=== PATIENT | female | born 1940 | race Caucasian/White ===

== ENCOUNTER → 2018-05-10 | Outpatient (CLI) | payer MEDICARE ==
--- NOTE | 2018-05-10 10:08 | PCVCIMAG ---
EXAM: VENOUS DUPLEX RIGHT LOWER EXTREMITY INDICATION: Leg pain and swelling. FINDINGS: Right leg: Mild/moderate nonocclusive thrombus in the common femoral vein and upper main femoral vein. Nonocclusive thrombus is also noted in the right external iliac vein where visualized. No thrombus in the mid/lower main femoral, or popliteal veins. Calf veins are unremarkable where seen. Venous insufficiency is noted in the lower main femoral vein and popliteal vein. IMPRESSION: Mild/moderate nonocclusive thrombus in the right common femoral vein, upper right main femoral vein, and right external iliac vein. Venous insufficiency in the right main femoral vein and popliteal vein as described. LOC:[id number]
== END | disposition home or self-care (01) ==
LOC: PCVCIMAG 09:39
PROVIDERS: ATTEND Nuclear Medicine Nuclear Cardiology
DX: I82.5Y1 Chronic embolism and thrombosis of unspecified deep veins of right proximal lower extremity (principal); M79.89 Other specified soft tissue disorders; I87.2 Venous insufficiency (chronic) (peripheral); I10 Essential (primary) hypertension; I48.91 Unspecified atrial fibrillation; E78.5 Hyperlipidemia, unspecified; K21.9 Gastro-esophageal reflux disease without esophagitis; Z87.891 Personal history of nicotine dependence
CPT/HCPCS: 93971; G0463

== ENCOUNTER → 2018-05-13 | Outpatient (CLI) | payer MEDICARE ==
[~2018-05-13] MED LIST: DIAZEPAM 10 MG TABLET. ONE; HEPARIN for SUB-Q USE 5,000 UNIT/ML VIAL. SQ ONE; IOHEXOL 300 MG/ML 100ML VIAL. ONE; IV NORMAL SALINE 500ML BAG 500 ML ONE; LIDOCAINE 1% Multi-Dose 50 ML VIAL. ONE; MIDAZOLAM HCL/PF 2 MG/2 ML VIAL. ONE; fentaNYL PF VIAL 100 MCG/2 ML VIAL ONE
--- NOTE | 2018-05-13 16:41 | PCVCINTER ---
EXAM: 1. INTRAVASCULAR ULTRASOUND OF THE INFERIOR VENA CAVA 2. INTRAVASCULAR ULTRASOUND OF THE RIGHT COMMON AND EXTERNAL ILIAC AND COMMON FEMORAL VEINS 3. INTRAVASCULAR ULTRASOUND OF THE LEFT COMMON AND EXTERNAL ILIAC 4. INFERIOR VENA CAVA AND BILATERAL ILIOFEMORAL VENOGRAPHY 5. RIGHT COMMON ILIAC VEIN STENT PLACEMENT. 6. LEFT COMMON ILIAC VEIN STENT PLACEMENT. 7. RIGHT EXTERNAL ILIAC VEIN STENT PLACEMENT. INDICATION: Iliofemoral venous obstruction. Previous episodes of DVT unexplained in the right leg. Persistent right leg swelling. Chronic Venous Insufficiency Class 4a. Leg pain and swelling. Failed conservative therapy including medical grade compression stockings for at least 3 months. Venous hypertension chronic. PROCEDURE: Procedure and risks of IVC and ileofemoral venography and intravascular ultrasound, and venous stent placement as appropriate including bleeding, infection, venous thrombosis, stent migration/thrombosis, contrast-induced nephropathy requiring dialysis, stroke, and were discussed with the patient and consent obtained. Patient was given IV antibiotics. The patient's right neck and chest was prepped and draped in the normal sterile fashion. IV conscious sedation was used throughout the procedure with appropriate monitoring. Ultrasound was used to interrogate the neck and showed the internal jugular vein to be patent. A spot ultrasound image of the internal jugular vein was saved. Under ultrasound guidance access into the right internal jugular vein was obtained and an 8F sheath was placed to the level of the lower IVC. Catheter was placed into the lower IVC and IVC cavogram performed. Catheter was placed to the level of the right common femoral vein and right iliofemoral venogram obtained. Catheter was placed to the level of the left common femoral vein and left iliofemoral venogram was obtained. The 8 Portuguese intravascular ultrasound catheter was then placed to the level of the right common femoral vein and intravascular ultrasound evaluation of the right common femoral, right external iliac, and right common iliac veins was accomplished in a pull-back fashion. The 8 Portuguese intravascular ultrasound catheter was then placed to the level of the left external iliac vein and intravascular ultrasound evaluation of the left external iliac, and left common iliac veins was accomplished in a pull-back fashion. Intravascular ultrasound evaluation of the inferior vena cava was then accomplished in a pullback fashion. Stent placement across the areas of high-grade stenosis in the right external iliac vein was carried out with a 12 x 80 Smart control stent with subsequent dilatation to 10.0 mm. Stent placement across the areas of high-grade stenosis in the right common iliac vein was carried out with a 14 x 40 Smart control stent with subsequent dilatation to 10.0 mm. Stent placement across the areas of high-grade stenosis in the right common femoral vein was carried out with a 12 x 60 Smart control stent with subsequent dilatation to 9.5 mm. Stent placement across the areas of high-grade stenosis in the left common iliac vein was carried out with a 14 x 40 and 14 x 30 Smart control stents with subsequent dilatation to 10.0 mm. Sheath was removed and hemostasis obtained using manual pressure. FINDINGS: IVC INTRAVASCULAR ULTRASOUND: Normal vessel: 5.8 x 14.9 mm. Area = 74.0 sq. mm. RIGHT COMMON ILIAC VEIN INTRAVASCULAR ULTRASOUND: Normal vessel: Complete occlusion. Minimum vessel diameter: 3.4 x 4.6 mm. Area = 10.9 sq. mm. Post-Intervention diameter: 7.5 x 10.5 mm. Area = 61.9 sq. mm. RIGHT EXTERNAL ILIAC VEIN INTRAVASCULAR ULTRASOUND: Normal vessel: Complete occlusion. Minimum vessel diameter: 3.3 x 6.1 mm. Area = 14.0 sq. mm. Post-Intervention diameter: 8.3 x 9.2 mm. Area = 60.8 sq. mm. RIGHT COMMON FEMORAL VEIN INTRAVASCULAR ULTRASOUND: Normal vessel: Mid and upper vessel occlusion. Minimum vessel diameter: 3.3 x 6.0 mm. Area = 13.9 sq. mm. Post-Intervention diameter: 7.3 x 9.9 mm. Area = 56.2 sq. mm. LEFT COMMON ILIAC VEIN INTRAVASCULAR ULTRASOUND: Normal vessel: Subtotal occlusion. Minimum vessel diameter: 2.7 x 6.5 mm. Area = 12.5 sq. mm. Post-Intervention diameter: 8.6 x 11.7 mm. Area = 84.8 sq. mm. LEFT EXTERNAL ILIAC VEIN INTRAVASCULAR ULTRASOUND: Normal vessel: Presumed occlusion. VENOGRAPHY: INFERIOR VENA CAVA: Upper IVC showing good patency. [id number] irregularity infrarenal IVC likely related to prior episodes of thrombus which have largely resolved with adequate flow. No acute thrombus noted. RIGHT COMMON ILIAC VEIN: Complete occlusion throughout. RIGHT EXTERNAL ILIAC VEIN: Complete occlusion throughout. RIGHT COMMON FEMORAL VEIN: Occlusion of the mid and upper vessel. LEFT COMMON ILIAC VEIN: Subtotal occlusion/scarring throughout this vessel. LEFT EXTERNAL ILIAC VEIN: Unable to visualize the mid and lower vessel likely due to chronic occlusion. LEFT COMMON FEMORAL VEIN: Not visualized likely because of the external iliac vein presumed occlusion. IMPRESSION: Previous IVC filter remains patent. The infrarenal IVC shows chronic scarring. 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 Residual scarring and chronic thrombus noted in the lower right common femoral vein. Chronic scarring throughout the left common iliac vein causing near subtotal occlusion was treated with stent placements with good patency restored. 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 LOC:[id number]
== END | disposition home or self-care (01) ==
LOC: PCVCINTER 10:08
PROVIDERS: ATTEND Nuclear Medicine Nuclear Cardiology
DX: I87.2 Venous insufficiency (chronic) (peripheral) (principal); I87.301 Chronic venous hypertension (idiopathic) without complications of right lower extremity; I87.1 Compression of vein; I10 Essential (primary) hypertension; E78.5 Hyperlipidemia, unspecified; K21.9 Gastro-esophageal reflux disease without esophagitis; D64.9 Anemia, unspecified; I48.0 Paroxysmal atrial fibrillation; Z87.891 Personal history of nicotine dependence; I47.1 Supraventricular tachycardia; Z88.0 Allergy status to penicillin; Z79.899 Other long term (current) drug therapy; Z86.718 Personal history of other venous thrombosis and embolism; I69.351 Hemiplegia and hemiparesis following cerebral infarction affecting right dominant side
CPT/HCPCS: 36012; 37238; 37239; 37252; 37253; 75822; 75825; 76937; 99152; 99153; C1725; C1751; C1753; C1757; C1769; C1876; C1887; C1894; J0690; J1644; J2250; J3010; J7040; Q9967

== ENCOUNTER → 2018-08-20 | Outpatient (CLI) | payer MEDICARE ==
--- NOTE | 2018-08-20 12:06 | PCVCIMAG ---
EXAM: VENOUS DUPLEX IVC AND ILIAC VEINS INDICATION: Leg pain and swelling. FINDINGS: Inferior vena cava: IVC is patent where visualized. Right iliac veins: Previous stent right common and external iliac vein maintaining adequate patency. Left iliac veins: Previous common iliac vein stent maintaining satisfactory patency. Left external iliac vein appears patent although is more difficult to visualize. IMPRESSION: Inferior vena cava and bilateral iliac veins appear patent. Note is made the left external iliac vein not optimally seen. LOC:[id number]
--- NOTE | 2018-08-20 12:07 | PCVCIMAG ---
EXAM: VENOUS DUPLEX BOTH LOWER EXTREMITIES INDICATION: Leg pain and swelling. FINDINGS: Right leg: Small amount of chronic appearing nonocclusive thrombus in the common femoral vein. Main femoral and popliteal veins are patent without thrombus. Calf veins are unremarkable where seen. Left leg: No thrombus in the common femoral, main femoral, or popliteal veins. These veins are compressible with phasic flow. Calf veins are unremarkable where seen. IMPRESSION: Small amount of chronic appearing nonocclusive thrombus right common femoral vein has decreased in amount since May 2018 study. No evidence of deep venous thrombosis in the left lower extremity as detailed above. LOC:[id number]
== END | disposition home or self-care (01) ==
LOC: PCVCIMAG 08:20
PROVIDERS: ATTEND Nuclear Medicine Nuclear Cardiology
DX: I87.2 Venous insufficiency (chronic) (peripheral) (principal); I82.5Y1 Chronic embolism and thrombosis of unspecified deep veins of right proximal lower extremity; I82.423 Acute embolism and thrombosis of iliac vein, bilateral; I87.1 Compression of vein; M79.89 Other specified soft tissue disorders; I10 Essential (primary) hypertension; I48.91 Unspecified atrial fibrillation; E78.5 Hyperlipidemia, unspecified; K21.9 Gastro-esophageal reflux disease without esophagitis
CPT/HCPCS: 36415; 93970; 93976; G0463

== ENCOUNTER 2018-12-10 16:00 | Emergency (ER) | payer MEDICARE ==
[~2018-12-10] VITALS: Ht 162.6 cm; Wt 96.2 kg
--- NOTE | 2018-12-10 16:34 | PHYS DOC ---
Adult General HPI HPI Patient is a 78 year old female who fell one week ago. The patient lives an assisted living facility due to a past history of a stroke. The patient fell a week ago and is having right leg pain. The patient has bruising to the right leg and erythema. States that she has 0 out of 10 pain when laying on the bed howevelin r jumps to 5 out of 10 with stress move the leg. Has not taken any medicine prior to arrival for the pain. Has a history of blood clots however it is unclear whether or not she is currently on Xarelto. Review of Systems Review of Systems Constitutional: Denies fever or chills [] Eyes: Denies change in visual acuity, redness, or eye pain [] HENT: Denies nasal congestion or sore throat [] Respiratory: Denies cough or shortness of breath [] Cardiovascular: No additional information not addressed in HPI [] GI: Denies abdominal pain, nausea, vomiting, bloody stools or diarrhea [] : Denies dysuria or hematuria [] Musculoskeletal: Denies back pain but reports R leg pain. Integument: Denies rash or skin lesions [] Neurologic: Denies headache, focal weakness or sensory changes [] Endocrine: Denies polyuria or polydipsia [] Complete systems were reviewed and found to be within normal limits, except as documented in this note. Physical Exam Physical Exam Constitutional: Well developed, well nourished, no acute distress, non-toxic appearance. [] HENT: Normocephalic, atraumatic, bilateral external ears normal, oropharynx moist, no oral exudates, nose normal. [] Eyes: PERRLA, EOMI, conjunctiva normal, no discharge. [] Neck: Normal range of motion, no tenderness, supple, no stridor. [] Cardiovascular:Heart rate regular rhythm, no murmur [] Lungs & Thorax: Bilateral breath sounds clear to auscultation [] Abdomen: Bowel sounds normal, soft, no tenderness, no masses, no pulsatile masses. [] Skin: Warm, dry, no erythema, no rash. [] Back: No tenderness, no CVA tenderness. [] Extremities: Tenderness to R leg, has bruising and erythema. Neurologic: Alert and oriented X 3, normal motor function, normal sensory function, no focal deficits noted. [] Psychologic: Affect normal, judgement normal, mood normal. [] EKG EKG [] Radiology/Procedures Radiology/Procedures []PATIENT: UZAIR CLAROSOUNT: [id number]#: [id number] : 1940 LOCATION: ER AGE: 78 SEX: F EXAM STATUS: PRE ER ORD. PHYSICIAN: IVAN CONDON APRN REASON: fall, pain PROCEDURE: VENOUS LOWER EXTREMITY RIGHT Right lower extremity venous doppler ultrasound History: Right leg pain, fall Comparison: None Findings: Multiple grayscale, color, and duplex spectral analysis sonographic images were acquired of the right lower extremity veins to evaluate for the presence of DVT. There is normal phasicity. Normal compression, color-flow, and augmentation is demonstrated from the right common femoral to the popliteal veins. There is normal color flow of the proximal greater saphenous and profunda femoris veins. There is normal color flow of segments of the calf veins. There is hypoechoic fluid collection of the anterior right calf region reportedly at area of visible swelling about 4.3 x 2.2 x 2 cm in size. Impression: 1. There is no evidence of deep venous thrombosis from the right common femoral to the popliteal veins. 2. There is a nonspecific fluid collection of the anterior right calf region of uncertain sterility, consideration of sequela of hematoma. Electronically signed by: Gucci Shay MD (12/10/2018 5:27 PM) [id number] PATIENT: RICHIE CLAROS ACCOUNT: [id number] : 1940 LOCATION: ER AGE: 78 SEX: F EXAM STATUS: PRE ER ORD. PHYSICIAN: IVAN CONDON APRN REASON: pain, fall PROCEDURE: TIBIA FIBULA RIGHT TIBIA FIBULA RIGHT 12/10/2018 4:32 PM INDICATION: Pain, fall COMPARISON: None available. TECHNIQUE: 2 views of the tibia and fibula are provided. FINDINGS: Total knee arthroplasty is identified. There is no lucency surrounding the hardware. Diffuse subcutaneous edema. AP view of the ankle is not well profiled. There is no acute fracture or dislocation. Bone mineralization is within normal limits. Joint spaces are maintained. Regional soft tissues are within normal limits. There is no soft tissue gas or osseous erosion. IMPRESSION: No acute fracture or dislocation. AP view the ankle is not well profiled. If there is clinical concern for ankle injury, dedicated ankle films may be of benefit. Electronically signed by: Chayito Mccauley MD (12/10/2018 4:51 PM) [id number] DICTATED and SIGNED BY: CHAYITO MCCAULEY MD DATE: 12/10/18 1651 Course & Med Decision Making Course & Med Decision Making Pertinent Labs and Imaging studies reviewed. (See chart for details) Will get x-ray and ultrasound of the extremity. Was on Xarelto back in August unclear whether she is currently on this medication. Patient is not sure what medications that she takes. Xray and ultrasound are negative. There appears to be a mild cellulitis of the leg. Will place on Keflex. Dragon Disclaimer Dragon Disclaimer This electronic medical record was generated, in whole or in part, using a voice recognition dictation system. Departure Departure Impression: Primary Impression: Cellulitis Additional Impression: Fall Disposition: HOME, SELF-CARE Condition: STABLE Referrals: YARED FERREIRA MD (PCP) Patient Instructions: Fall Prevention and Home Safety Additional Instructions: Thank you for visiting [facility]. We appreciate you trusting us with your care. If any additional problems come up don't hesitate to return to visit us. Please follow up with your primary care provider so they can plan additional care if needed and know about the problem that you had. If symptoms worsen come back to the Emergency Department. Any concerning symptoms that start such as chest pain, shortness of air, weakness or numbness on one side of the body, running high fevers or any other concerning symptoms return to the ER. Please fill your medications at any pharmacy and follow the prescription instructions. You have been prescribed an antibiotic today to help fight your infection. Please take all of the antibiotic as directed. If after 48 hours the infection is not improving, please return for more care. If the infection worsens, return to ER for additional care. Scripts Cephalexin (KEFLEX) 500 Mg Capsule 500 MG PO QID for 7 Days, #28 CAP Prov: IVAN CONDON WORD PROCESSOR OPERATOR 12/10/18 Problem Qualifiers Primary Impression: Cellulitis Site of cellulitis: extremity Site of cellulitis of extremity: lower extremity Laterality: right Qualified Codes: L03.115 - Cellulitis of right lower limb Additional Impression: Fall Encounter type: initial encounter Qualified Codes: W19.XXXA - Unspecified fall, initial encounter IVAN CONDON APRN Dec 10, 2018 16:34
--- NOTE | 2018-12-10 16:54 | RAD ---
TIBIA FIBULA RIGHT 12/10/2018 4:32 PM INDICATION: Pain, fall COMPARISON: None available. TECHNIQUE: 2 views of the tibia and fibula are provided. FINDINGS: Total knee arthroplasty is identified. There is no lucency surrounding the hardware. Diffuse subcutaneous edema. AP view of the ankle is not well profiled. There is no acute fracture or dislocation. Bone mineralization is within normal limits. Joint spaces are maintained. Regional soft tissues are within normal limits. There is no soft tissue gas or osseous erosion. IMPRESSION: No acute fracture or dislocation. AP view the ankle is not well profiled. If there is clinical concern for ankle injury, dedicated ankle films may be of benefit. Electronically signed by: Jennie Hope MD (12/10/2018 4:51 PM) [id number]
--- NOTE | 2018-12-10 17:30 | RAD ---
Right lower extremity venous doppler ultrasound History: Right leg pain, fall Comparison: None Findings: Multiple grayscale, color, and duplex spectral analysis sonographic images were acquired of the right lower extremity veins to evaluate for the presence of DVT. There is normal phasicity. Normal compression, color-flow, and augmentation is demonstrated from the right common femoral to the popliteal veins. There is normal color flow of the proximal greater saphenous and profunda femoris veins. There is normal color flow of segments of the calf veins. There is hypoechoic fluid collection of the anterior right calf region reportedly at area of visible swelling about 4.3 x 2.2 x 2 cm in size. Impression: 1. There is no evidence of deep venous thrombosis from the right common femoral to the popliteal veins. 2. There is a nonspecific fluid collection of the anterior right calf region of uncertain sterility, consideration of sequela of hematoma. Electronically signed by: Gucci Shay MD (12/10/2018 5:27 PM) [facility]
[2018-12-10] MEDS ORDERED: CEPH-264 PO (17:48)
[2018-12-10 18:15] VITALS: BP 145/89
== END 2018-12-10 18:30 | disposition home or self-care (01) ==
LOC: ER 16:00
DX: S80.11XA Contusion of right lower leg, initial encounter (principal); L03.115 Cellulitis of right lower limb; Z86.73 Personal history of transient ischemic attack (TIA), and cerebral infarction without residual deficits; W18.39XA Other fall on same level, initial encounter; Y93.89 Activity, other specified; Y92.098 Other place in other non-institutional residence as the place of occurrence of the external cause; Y99.8 Other external cause status
CPT/HCPCS: 73590; 93971; 99284-25

== ENCOUNTER → 2018-12-16 | Outpatient (CLI) | payer MEDICARE ==
[2018-12-10 18:15] VITALS: BP 145/89
[~2018-12-16] MED LIST changes: +CEPH-264 PO; -DIAZEPAM 10 MG TABLET. ONE; -HEPARIN for SUB-Q USE 5,000 UNIT/ML VIAL. SQ ONE; -IOHEXOL 300 MG/ML 100ML VIAL. ONE; -IV NORMAL SALINE 500ML BAG 500 ML ONE; -LIDOCAINE 1% Multi-Dose 50 ML VIAL. ONE; -MIDAZOLAM HCL/PF 2 MG/2 ML VIAL. ONE; -fentaNYL PF VIAL 100 MCG/2 ML VIAL ONE
--- NOTE | 2018-12-16 11:04 | PCVCIMAG ---
EXAM: VENOUS DUPLEX RIGHT LEG INDICATION: Leg pain and swelling. FINDINGS: Right leg: Small amount of chronic appearing nonocclusive thrombus or scarring in the right common femoral vein. No thrombus in the main femoral, or popliteal veins. Calf veins are unremarkable where seen. IMPRESSION: Small amount of chronic appearing nonocclusive thrombus or scarring in the right common femoral vein similar in appearance to August 2018 study. No thrombus in the main femoral or popliteal veins or calf veins. LOC:[id number]
== END | disposition home or self-care (01) ==
LOC: PCVCIMAG 07:28
PROVIDERS: ATTEND Nuclear Medicine Nuclear Cardiology
DX: I82.501 Chronic embolism and thrombosis of unspecified deep veins of right lower extremity (principal); I87.2 Venous insufficiency (chronic) (peripheral)
CPT/HCPCS: 93971

== ENCOUNTER 2021-09-06 16:20 | Inpatient (IN) | payer MEDICARE ==
[~2021-09-06] VITALS: Ht 157.5 cm; Wt 100.0 kg
--- NOTE | 2021-09-06 16:39 | PHYS DOC ---
Past Medical History Past Surgical History: Knee Replacement Smoking Status: Never Smoker Alcohol Use: None Drug Use: None Adult General HPI HPI Patient is a 80 year old female presenting to the emergency department for a fall that occurred shortly prior to arrival. Patient said that she was transitioning to her bedside commode when she stumbled and fell on her bottom and she bumped her head as well. She said she did not lose consciousness and she says she has no pain at this time. Per EMS she was complaining of arm and knee pain but she denied that to me. She said she did not hurt initially but now she does not hurt at all. She has no open wounds or abrasions or obvious signs of trauma. She is on Xarelto. She appears to be dyspneic and she has lower extremity edema looking at her assisted living facility paperwork appears this is baseline for her. I asked about her shortness of breath and she says she is not more short of breath than usual. Review of Systems Review of Systems Constitutional: Denies fever or chills [] Eyes: Denies change in visual acuity, redness, or eye pain [] HENT: Denies nasal congestion or sore throat [] Respiratory: Denies cough or shortness of breath [] Cardiovascular: No additional information not addressed in HPI [] GI: Denies abdominal pain, nausea, vomiting, bloody stools or diarrhea [] : Denies dysuria or hematuria [] Musculoskeletal: Denies back pain or joint pain [] Integument: Denies rash or skin lesions [] Neurologic: Denies headache, focal weakness or sensory changes [] All other systems were reviewed and found to be within normal limits, except as documented in this note. Current Medications Current Medications Current Medications Medications (Trade) Dose Ordered Sig/Marianna Start Time Stop Time Status Last Admin Dose Admin Prothrombin Complex Concent (Human) 2000 unit/ Miscellaneous 80 ml @ 0 mls/hr 1X ONCE 09/06/21 18:30 09/06/21 18:31 Allergies Allergies Allergies Coded Allergies Type Severity Reaction Last Updated Verified Penicillins Allergy Intermediate 12/10/18 Yes Physical Exam Physical Exam Constitutional: Chronically ill-appearing female in no acute distress HENT: Normocephalic, atraumatic, bilateral external ears normal, oropharynx moist, no oral exudates, nose normal. [] Eyes: PERRLA, EOMI, conjunctiva normal, no discharge. [] Neck: Normal range of motion, no tenderness, supple, no stridor. [] Cardiovascular:Heart rate regular rhythm, no murmur. 2-3+ bilateral lower extremity edema Lungs & Thorax: Bilateral breath sounds clear to auscultation [] Abdomen: Bowel sounds normal, soft, no tenderness, no masses, no pulsatile masses. [] Skin: Warm, dry, no erythema, no rash. [] Back: No midline cervical thoracic or lumbar tenderness to palpation Extremities: Full range of motion of arms and legs with no joint tenderness or restriction in range of motion Neurologic: Alert and oriented X 3, decreased movement on the right side which is baseline for her from prior CVA. No other neurologic deficits noted Current Patient Data Vital Signs Vital Signs Date Time Temp Pulse Resp B/P (MAP) Pulse Ox O2 Delivery O2 Flow Rate FiO2 09/06/21 16:20 98.1 68 22 136/64 (88) 92 Room Air 98.1 EKG EKG [] Radiology/Procedures Radiology/Procedures [] Course & Med Decision Making Course & Med Decision Making I will check imaging and reassess. Patient has findings of basal ganglial hemorrhage on her CT and the neurosurgeon Dr. Sherman reviewed it and said that it is small and recommended admission to the ICU and to have an MRI done tomorrow. Patient says she does not take anticoagulations but Xarelto is listed on her medication list from assisted living facility as well as prior strokes and thromboembolic events. Given her presenting symptoms and work-up and the medications we will plan on starting her on PCC and I called the pharmacy and they were going to make the PCC for the emergency department. I told patient the diagnosis and plan and she consented to admission. Patient will be admitted to the ICU in guarded condition. Sol stinson accepted by Dr. De Luna. Critical care time of 40 minutes. Dragon Disclaimer Dragon Disclaimer This electronic medical record was generated, in whole or in part, using a voice recognition dictation system. Departure Departure Impression: Primary Impression: Basal ganglia hemorrhage Additional Impressions: Anticoagulant long-term use Fall Pain in pelvis Disposition: ADMITTED INPATIENT Admitting Physician: SILVIA (Calixto) Condition: GUARDED Referrals: YARED FERREIRA MD (PCP) Problem Qualifiers MATT HOPPER DO Sep 06, 2021 16:39
--- NOTE | 2021-09-06 17:19 | RAD ---
Exam: CT pelvis without contrast INDICATION: Hip Pain status post fall TECHNIQUE: Sequential axial images through the pelvis obtained without IV contrast. Sagittal and hailey nal reformatted images were reconstructed from the axial data and reviewed. Exposure: One or more of the following in the visualized dose reduction techniques were utilized for this examination: 1. Automated exposure control 2. Adjustment of the MA and/or KV according to patient size 3. Use of iterative of reconstructive technique Comparisons: None FINDINGS: Metallic stents noted within the iliac arteries bilaterally. Diverticulosis in the visualized portion s of the sigmoid colon. Diffuse osteopenia. No displaced fractures are identified. Sacroiliac joints, pubic symphysis are we ll-maintained. There is mild degenerative change at the hip joints bilaterally. Soft tissues of the visualized bilateral lower extremities are unremarkable. IMPRESSION: No displaced fracture identified within the pelvis. If the patient is acutely unable to bear weight M RI to evaluate for occult hip fracture is recommended. Electronically signed by: Pilar Boston MD (09/06/2021 5:16 PM) [facility]
--- NOTE | 2021-09-06 17:30 | RAD ---
Exam: CT head INDICATION: Head pain status post fall TECHNIQUE: Sequential axial images through the head were obtained without the administration of IV co ntrast. Exposure: One or more of the following in the visualized dose reduction techniques were utilized for this examination: 1. Automated exposure control 2. Adjustment of the MA and/or KV according to patient size 3. Use of iterative of reconstructive technique Comparisons: None FINDINGS: There is a subtle 3 mm hyperdensity noted within the posterior right basal ganglia seen on series 2 i mage 16. There is no midline shift or sulcal effacement. Patchy evidence in the periventricular white matter. No acute vascular territory infarction is identi fied. Martínez-white distinction is preserved. The ventricular system is within normal limits without compression hydrocephalus. The basal cisterns are well maintained. The visualized portions of the paranasal sinuses and mastoid air cells are well-pneumatized. No acute fractures. IMPRESSION: 1. A 3 mm rounded hyperdensity at the posterior right basal ganglia. This is concerning for intrapar enchymal hemorrhage. Correlate for hypertension. Recommend short-term follow-up imaging to assess sta bility. 2. Moderate small vessel ischemic change, technically age indeterminate without recent prior imaging . If there are concerns for acute ischemia MRI would better evaluate. FOR INTERNAL CODING PURPOSES Critical result: Findings discussed with MATT HOPPER DO at 09/06/2021 5:23 PM. RESULT CODE: (C) Electronically signed by: Pilar Boston MD (09/06/2021 5:28 PM) [facility]
[2021-09-06] MEDS ORDERED: ONDANSETRON PF 4 MG/2 ML VIAL. IVP PRN (18:00)
[2021-09-06 18:16] LABS: BASO % 0 % (0-3); EOS # 0.3 x10^3/uL (0.0-0.7); EOS % 4 % (0-3); HEMATOCRIT 40.7 % (36.0-47.0); HEMOGLOBIN 13.1 g/dL (12.0-15.5); LYMPH % 13 % (24-48); MEAN CORPUSCULAR HEMOGLOBIN 29 pg (25-35); MEAN CORPUSCULAR HGB CONC 32 g/dL (31-37); MEAN CORPUSCULAR VOLUME 89 fL (79-100); MONO # 0.7 x10^3/uL (0.0-1.1); MONO % 9 % (0-9); NEUT # 5.2 x10^3/uL (1.8-7.7); NEUT % 73 % (31-73); PLATELET COUNT 209 x10^3/uL (140-400); RED BLOOD COUNT 4.57 x10^6/uL (3.50-5.40); RED CELL DISTRIBUTION WIDTH 14.3 % (11.5-14.5); WHITE BLOOD COUNT 7.2 x10^3/uL (4.0-11.0)
[2021-09-06 18:22] LABS: CALCIUM 9.2 mg/dL (8.5-10.1); CREATININE 1.3 mg/dL (0.6-1.0); GFR 39.4; POTASSIUM 4.1 mmol/L (3.5-5.1)
[2021-09-06 18:27] LABS: PROTHROMBIN TIME PATIENT 14.3 SEC (11.7-14.0)
[2021-09-06 18:28] LABS: ALBUMIN 3.5 g/dL (3.4-5.0); TOTAL BILIRUBIN 0.4 mg/dL (0.2-1.0)
[2021-09-06] MEDS ORDERED: HUM PROTHROMBIN CPLX IV ONE (18:30)
[2021-09-06] MEDS ORDERED: [UNRECOGNIZED DRUG - OTHER] IV ONE (18:30)
[2021-09-06] MEDS ORDERED: TOTAL VOLUME IV ONE (18:30)
[2021-09-06 20:00] VITALS: BP 174/91
--- NOTE | 2021-09-06 20:30 | NUR ---
Pt arrived to unit at 1999. Orientated to room. Assessment completed and documented. SCDs not applied due to pts lower leg lymphedema.
[2021-09-06 21:00] VITALS: BP 127/79
[2021-09-06 22:00] VITALS: BP 79/62
[2021-09-06 23:00] VITALS: BP 121/55
[2021-09-07] VITALS (16 sets, daily range): BP systolic 103–167; BP diastolic 44–88
[2021-09-07 05:02] LABS: BASO % 0 % (0-3); EOS # 0.3 x10^3/uL (0.0-0.7); EOS % 5 % (0-3); HEMATOCRIT 37.1 % (36.0-47.0); HEMOGLOBIN 11.8 g/dL (12.0-15.5); LYMPH # 1.2 x10^3/uL (1.0-4.8); LYMPH % 19 % (24-48); MEAN CORPUSCULAR HEMOGLOBIN 29 pg (25-35); MEAN CORPUSCULAR HGB CONC 32 g/dL (31-37); MEAN CORPUSCULAR VOLUME 90 fL (79-100); MONO # 0.7 x10^3/uL (0.0-1.1); MONO % 12 % (0-9); NEUT # 3.8 x10^3/uL (1.8-7.7); NEUT % 63 % (31-73); PLATELET COUNT 167 x10^3/uL (140-400); RED BLOOD COUNT 4.12 x10^6/uL (3.50-5.40); RED CELL DISTRIBUTION WIDTH 14.4 % (11.5-14.5); WHITE BLOOD COUNT 6.1 x10^3/uL (4.0-11.0)
[2021-09-07 05:21] LABS: CALCIUM 8.5 mg/dL (8.5-10.1); CREATININE 1.2 mg/dL (0.6-1.0); GFR 43.2; POTASSIUM 3.7 mmol/L (3.5-5.1)
[2021-09-07] MEDS ORDERED: CARV3.12 PO (07:19)
[2021-09-07] MEDS ORDERED: RIVA15TA PO (07:19)
[2021-09-07] MEDS ORDERED: FAMO20TA5 PO (07:19)
[2021-09-07] MEDS ORDERED: SERT25TA PO (07:19)
[2021-09-07] MEDS ORDERED: PRAV20TA2 PO (07:19)
--- NOTE | 2021-09-07 09:52 | RAD ---
EXAMINATION: Magnetic resonance imaging (MRI) of the brain and brainstem without contrast 09/07/2021 8: 36 AM HISTORY: Basal ganglia hemorrhage versus calcification. TECHNIQUE: Multiplanar multi-weighted MRI of the brain and brainstem was performed without intravenou s contrast using the general brain protocol. COMPARISON: CT head 09/06/2021. FINDINGS: The scalp and calvarium are normal. The superior sagittal sinus demonstrates normal venous flow. The corpus callosum is normal in shape and signal intensity. Remote ischemic changes identified in infer ior right cerebellum (series 6001, image 7). The pituitary and sella are normal. The brainstem and craniocervical junction are unremarkable. There are T2/FLAIR signal hyperintense foci in the claire, pe riventricular and subcortical white matter with areas of confluence most suggestive of moderate chron ic small vessel ischemic changes. There is an area of susceptibility artifact identified within the l eft thalamus the rim of T2 signal hypointensity and central T2 hyperintensity measuring 6 mm. Conside ration may be given for a cavernoma. There is similar finding identified within the right thalamus me asuring 4 mm which corresponds with hyperattenuation identified on recent head CT. Primary considerat ion is a cavernoma. There is adjacent susceptibility artifact which does not have corresponding T2 si gnal abnormality within the right thalamus as well as within the right caudate head, left putamen rig ht temporal lobe and bilateral cerebellar hemispheres suggestive of areas of microhemorrhage. There i s subtle calcified extra-axial density identified along the right frontal vertex (coronal T2 image 11 ) which may represent an osteoma versus calcified meningioma. Diffusion weighted images reveal no hyperintensities to suggest acute cerebral infarction. Ventricle s, sulci and basal cisterns are prominent compatible with moderate generalized cerebral volume loss. No hydrocephalus. The paranasal sinuses are normal. The visualized portions of the mastoids are unremarkable. The orbi ts appear normal. Normal flow voids are demonstrated in the carotid arteries and basilar artery. IMPRESSION: 1. No evidence for acute or subacute ischemia. 2. There are areas of signal alteration within the thalami bilaterally which have imaging characteris tics most suggestive of cavernoma's. 4 mm area of signal alteration within the right thalamus corresp onds with area of high attenuation on head CT. 3. Additional areas of susceptibility artifact without corresponding T2 signal alteration favor areas of microhemorrhage as detailed above. 4. There are T2/FLAIR signal hyperintense foci in the periventricular and subcortical white matter wi th areas of confluence most suggestive of moderate chronic small vessel ischemic changes. Electronically signed by: Jennie Hope MD (09/07/2021 9:50 AM) [id number]
[2021-09-07 10:57] LABS: CHOLESTEROL/HDL RATIO 2.7
--- NOTE | 2021-09-07 11:18 | HP ---
DATE OF SERVICE: 09/07/2021 ADMIT DATE: 09/06/2021 CHIEF COMPLAINT: Fall. HISTORY OF PRESENT ILLNESS: The patient is a pleasant elderly female who fell just prior to arrival. She was transitioning to her bedside commode and she stumbled and fell and bumped her head. She did not lose consciousness. The ambulance was called. She was brought to the ER for evaluation. She was complaining of some knee and arm pain at that time. It should be noted that she is on chronic anticoagulation with Xarelto. We did a CAT scan in the ER showing a possible 3 mm right basal ganglia intraparenchymal hemorrhage. The patient has now been admitted to the ICU where she has been examined. PAST MEDICAL HISTORY: Chronic anticoagulation on Xarelto, hyperlipidemia, CHF, hypertension, depression, anxiety, GERD. "Dictation Ends Here" IRIS DR: Di TID: [id number]
[2021-09-07] MEDS ORDERED: BARIUM SULFATE 40% (APPLE) 148 GM PWD. PO ONE (12:45)
--- NOTE | 2021-09-07 14:06 | PDOC ---
Provider Note Date of Service: DATE: 09/07/21 TIME: 13:33 Provider Note Patient seen and examined consulted for hyperdensity at the posterior right basal ganglia, possible intraparenchymal hemorrhage. fell at her assisted living. She was transitioning to her bedside commode when she stumbled and fell on her buttocks and bumped her head. She does not think she lost consciousness. She really is unclear of what happened yesterday. She had a CT scan of the head showing possible right basal granular hemorrhage, but MRI is consistent with calcified cavernous hemangiomas. Patient says that she had a stroke several years ago involving some right-sided weakness. no complaints alert and oriented. neuro intact with upper extremities strength 4/5, strength 2-3/5 lower extremities Imaging reviewed. There are areas of signal alteration within the thalami bilaterally which have imaging characteristics most suggestive of cavernoma's. 4 mm area of signal alteration within the right thalamus corresponds with area of high attenuation on head CT. There is possible microhemorrhage. will obtain a f/u CT head next week. call with questions. D/W RN Justifications for Admission Other Justification MARSHALL GARCÍA MD Sep 07, 2021 14:06
--- NOTE | 2021-09-07 14:40 | RAD ---
EXAMINATION: BARIUM SWALLOW WITH VIDEOFLUOROSCOPY CLINICAL HISTORY: Dysphagia. TECHNIQUE: DG VIDEO SWALLOW STUDY -- 0 images Fluoroscopy Time: 2.0 minutes COMPARISON: None FINDINGS/ IMPRESSION: Modified barium swallow was performed in conjunction with Speech Pathology with fluoroscopic assistan ce provided by the radiologist. Patient was given various barium substrates for the speech pathologis t to evaluate the oropharyngeal phases of swallowing. The exam is recorded for review. Refer to speech pathology report for details of the exam. Electronically signed by: Black Mast DO (09/07/2021 2:37 PM) [id number]
--- NOTE | 2021-09-07 15:18 | PDOC2 ---
NEUROLOGY CONSULT Date of Service DOS: DATE: 09/07/21 TIME: 15:07 Reason for Consult Reason for Consult: Possible cerebral hemorrhage Referring Physician Referring Physician: Dr. Tang Source Source: Chart review, Patient History of Present Illness History of Present Illness The patient is an 80-year-old right-handed female who fell at her assisted living. She was transitioning to her bedside commode when she stumbled and fell on her buttocks and bumped her head. She does not think she lost consciousness. She really is unclear of what happened yesterday. She had a CT scan of the head showing possible right basal granular hemorrhage, but MRI is consistent with calcified cavernous hemangiomas. Patient says that she had a stroke several years ago involving some right-sided weakness. She has been getting around with a wheelchair for several years and transfers herself, she says. She is not sure why she needs a wheelchair. She denies any back, hip, or knee problems. There is no history of neuropathy. She has never had a seizure. She denies any headaches. Past Medical History Cardiovascular: HTN, Hyperlipidemia, Other (Venous insufficiency,? Deep venous thrombosis in the past) Pulmonary: Other (long-term diagnosis of shortness of breath, patient denies) CENTRAL NERVOUS SYSTEM: CVA, Dementia (long-term diagnosis of cognitive deficit) Past Surgical History Past Surgical History: No pertinent history Family History Family History: No pertinent hx Social History Social History , no alcohol or tobacco Current Medications Current Medications Current Medications Prothrombin Complex Concent (Human) 2000 unit/ Miscellaneous 80 ml @ 8.4 mls/min 1X ONCE IV Last administered on 09/06/21at 18:27; Start 09/06/21 at 18:30; Stop 09/06/21 at 18:39; Status DC Ondansetron HCl (Zofran) 4 mg PRN Q8HRS PRN IVP NAUSEA/VOMITING; Start 09/06/21 at 18:00; Stop 09/07/21 at 17:59 Barium Sulfate (Varibar Thin Liquid Apple) 148 gm 1X ONCE PO ; Start 09/07/21 at 12:45; Stop 09/07/21 at 12:46; Status DC Active Scripts Active Reported Xarelto (Rivaroxaban) 15 Mg Tablet 15 Mg PO DAILY Zoloft (Sertraline Hcl) 25 Mg Tablet 25 Mg PO DAILY Coreg (Carvedilol) 3.125 Mg Tablet 3.125 Mg PO BIDWMEALS Pravastatin Sodium 20 Mg Tablet 20 Mg PO QHS Famotidine 20 Mg Tablet 20 Mg PO HS Allergies Allergies: Coded Allergies: Penicillins (Verified Allergy, Intermediate, 12/10/18) ROS Review of System Negative for fever, chills, weight loss, shortness of breath, chest pain, indigestion, hematochezia, melena, and dysuria. Full 14-point review of systems is negative. Physical Exam Physical Examination General: Well-developed, well-nourished white female in no acute distress HEENT: Normocephalic andatraumatic. Temporal arteriespulsatile and nontender. Neck: Supple without bruit, no meningismus Musculoskeletal: Stability:see neurologic. Gait exam:see neurologic. Tone:see marino rologic.Strength:see neurologic. Neurological: Mental Status: orientation, memory, attention span/concentration, language, fund of knowledge: Knows that she is at [facility], does not know the date. Poor historian. Cranial Nerves:Pupils equal and reactive to light, extraocular movements areintact, visual lee are full to confrontation. Facial sensation is normal. There is no facial asymmetry. Vestibulo-ocular reflex is intact. Palate elevates and tongue protrudes in midline. All other cranial related problems are negative except as mentioned before.Reflexes:1+ and symmetric with flexor plantar responses. Motor:Upper extremities 4/5 strength, weaker in the right arm, 2-3/5 legs, with normal tone and bulk. Coordination:Finger-nose finger is normal. Rapid alternating movements and fine finger movements are intact. Gait:not tested. Sensory:Normal pinprick, vibration, light touch, proprioception. Vitals VITALS Vital Signs Date Time Temp Pulse Resp B/P (MAP) Pulse Ox O2 Delivery O2 Flow Rate FiO2 09/07/21 11:00 70 18 148/78 (101) 96 Nasal Cannula 2.0 09/07/21 07:00 98.1 98.1 Labs Labs Laboratory Tests Test 09/06/21 18:02 09/07/21 04:35 White Blood Count 7.2 x10^3/uL (4.0-11.0) 6.1 x10^3/uL (4.0-11.0) Red Blood Count 4.57 x10^6/uL (3.50-5.40) 4.12 x10^6/uL (3.50-5.40) Hemoglobin 13.1 g/dL (12.0-15.5) 11.8 g/dL (12.0-15.5) Hematocrit 40.7 % (36.0-47.0) 37.1 % (36.0-47.0) Mean Corpuscular Volume 89 fL (79-100) 90 fL (79-100) Mean Corpuscular Hemoglobin 29 pg (25-35) 29 pg (25-35) Mean Corpuscular Hemoglobin Concent 32 g/dL (31-37) 32 g/dL (31-37) Red Cell Distribution Width 14.3 % (11.5-14.5) 14.4 % (11.5-14.5) Platelet Count 209 x10^3/uL (140-400) 167 x10^3/uL (140-400) Neutrophils (%) (Auto) 73 % (31-73) 63 % (31-73) Lymphocytes (%) (Auto) 13 % (24-48) 19 % (24-48) Monocytes (%) (Auto) 9 % (0-9) 12 % (0-9) Eosinophils (%) (Auto) 4 % (0-3) 5 % (0-3) Basophils (%) (Auto) 0 % (0-3) 0 % (0-3) Neutrophils # (Auto) 5.2 x10^3/uL (1.8-7.7) 3.8 x10^3/uL (1.8-7.7) Lymphocytes # (Auto) 1.0 x10^3/uL (1.0-4.8) 1.2 x10^3/uL (1.0-4.8) Monocytes # (Auto) 0.7 x10^3/uL (0.0-1.1) 0.7 x10^3/uL (0.0-1.1) Eosinophils # (Auto) 0.3 x10^3/uL (0.0-0.7) 0.3 x10^3/uL (0.0-0.7) Basophils # (Auto) 0.0 x10^3/uL (0.0-0.2) 0.0 x10^3/uL (0.0-0.2) Prothrombin Time 14.3 SEC (11.7-14.0) Prothromb Time International Ratio 1.1 (0.8-1.1) Activated Partial Thromboplast Time 37 SEC (24-38) Sodium Level 144 mmol/L (136-145) 144 mmol/L (136-145) Potassium Level 4.1 mmol/L (3.5-5.1) 3.7 mmol/L (3.5-5.1) Chloride Level 107 mmol/L (98-107) 111 mmol/L (98-107) Carbon Dioxide Level 29 mmol/L (21-32) 30 mmol/L (21-32) Anion Gap 8 (6-14) 3 (6-14) Blood Urea Nitrogen 23 mg/dL (7-20) 20 mg/dL (7-20) Creatinine 1.3 mg/dL (0.6-1.0) 1.2 mg/dL (0.6-1.0) Estimated GFR (Cockcroft-Gault) 39.4 43.2 BUN/Creatinine Ratio 18 (6-20) Glucose Level 100 mg/dL (70-99) 85 mg/dL (70-99) Calcium Level 9.2 mg/dL (8.5-10.1) 8.5 mg/dL (8.5-10.1) Total Bilirubin 0.4 mg/dL (0.2-1.0) Aspartate Amino Transf (AST/SGOT) 18 U/L (15-37) Alanine Aminotransferase (ALT/SGPT) 17 U/L (14-59) Alkaline Phosphatase 82 U/L (46-116) Troponin I High Sensitivity 9 ng/L (4-50) JI-Cib-W-Type Natriuretic Peptide 187 pg/mL (0-449) Total Protein 7.0 g/dL (6.4-8.2) Albumin 3.5 g/dL (3.4-5.0) Albumin/Globulin Ratio 1.0 (1.0-1.7) Triglycerides Level 95 mg/dL (0-150) Cholesterol Level 131 mg/dL (0-200) LDL Cholesterol, Calculated 63 mg/dL (0-100) VLDL Cholesterol, Calculated 19 mg/dL (0-40) Non-HDL Cholesterol Calculated 82 mg/dL (0-129) HDL Cholesterol 49 mg/dL (40-60) Cholesterol/HDL Ratio 2.7 Laboratory Tests Test 09/06/21 18:02 09/07/21 04:35 White Blood Count 7.2 x10^3/uL (4.0-11.0) 6.1 x10^3/uL (4.0-11.0) Red Blood Count 4.57 x10^6/uL (3.50-5.40) 4.12 x10^6/uL (3.50-5.40) Hemoglobin 13.1 g/dL (12.0-15.5) 11.8 g/dL (12.0-15.5) Hematocrit 40.7 % (36.0-47.0) 37.1 % (36.0-47.0) Mean Corpuscular Volume 89 fL (79-100) 90 fL (79-100) Mean Corpuscular Hemoglobin 29 pg (25-35) 29 pg (25-35) Mean Corpuscular Hemoglobin Concent 32 g/dL (31-37) 32 g/dL (31-37) Red Cell Distribution Width 14.3 % (11.5-14.5) 14.4 % (11.5-14.5) Platelet Count 209 x10^3/uL (140-400) 167 x10^3/uL (140-400) Neutrophils (%) (Auto) 73 % (31-73) 63 % (31-73) Lymphocytes (%) (Auto) 13 % (24-48) 19 % (24-48) Monocytes (%) (Auto) 9 % (0-9) 12 % (0-9) Eosinophils (%) (Auto) 4 % (0-3) 5 % (0-3) Basophils (%) (Auto) 0 % (0-3) 0 % (0-3) Neutrophils # (Auto) 5.2 x10^3/uL (1.8-7.7) 3.8 x10^3/uL (1.8-7.7) Lymphocytes # (Auto) 1.0 x10^3/uL (1.0-4.8) 1.2 x10^3/uL (1.0-4.8) Monocytes # (Auto) 0.7 x10^3/uL (0.0-1.1) 0.7 x10^3/uL (0.0-1.1) Eosinophils # (Auto) 0.3 x10^3/uL (0.0-0.7) 0.3 x10^3/uL (0.0-0.7) Basophils # (Auto) 0.0 x10^3/uL (0.0-0.2) 0.0 x10^3/uL (0.0-0.2) Prothrombin Time 14.3 SEC (11.7-14.0) Prothromb Time International Ratio 1.1 (0.8-1.1) Activated Partial Thromboplast Time 37 SEC (24-38) Sodium Level 144 mmol/L (136-145) 144 mmol/L (136-145) Potassium Level 4.1 mmol/L (3.5-5.1) 3.7 mmol/L (3.5-5.1) Chloride Level 107 mmol/L (98-107) 111 mmol/L (98-107) Carbon Dioxide Level 29 mmol/L (21-32) 30 mmol/L (21-32) Anion Gap 8 (6-14) 3 (6-14) Blood Urea Nitrogen 23 mg/dL (7-20) 20 mg/dL (7-20) Creatinine 1.3 mg/dL (0.6-1.0) 1.2 mg/dL (0.6-1.0) Estimated GFR (Cockcroft-Gault) 39.4 43.2 BUN/Creatinine Ratio 18 (6-20) Glucose Level 100 mg/dL (70-99) 85 mg/dL (70-99) Calcium Level 9.2 mg/dL (8.5-10.1) 8.5 mg/dL (8.5-10.1) Total Bilirubin 0.4 mg/dL (0.2-1.0) Aspartate Amino Transf (AST/SGOT) 18 U/L (15-37) Alanine Aminotransferase (ALT/SGPT) 17 U/L (14-59) Alkaline Phosphatase 82 U/L (46-116) Troponin I High Sensitivity 9 ng/L (4-50) WD-Fiv-G-Type Natriuretic Peptide 187 pg/mL (0-449) Total Protein 7.0 g/dL (6.4-8.2) Albumin 3.5 g/dL (3.4-5.0) Albumin/Globulin Ratio 1.0 (1.0-1.7) Triglycerides Level 95 mg/dL (0-150) Cholesterol Level 131 mg/dL (0-200) LDL Cholesterol, Calculated 63 mg/dL (0-100) VLDL Cholesterol, Calculated 19 mg/dL (0-40) Non-HDL Cholesterol Calculated 82 mg/dL (0-129) HDL Cholesterol 49 mg/dL (40-60) Cholesterol/HDL Ratio 2.7 Images Images BRAIN W/O CONTRAST, 09/07/21 The scalp and calvarium are normal. The superior sagittal sinus demonstrates normal venous flow. The corpus callosum is normal in shape and signal intensity. Remote ischemic changes identified in inferior right cerebellum (series 6001, image 7). The pituitary and sella are normal. The brainstem and craniocervical junction are unremarkable. There are T2/FLAIR signal hyperintense foci in the claire, periventricular and subcortical white matter with areas of confluence most suggestive of moderate chronic small vessel ischemic changes. There is an area of susceptibility artifact identified within the left thalamus the rim of T2 signal hypointensity and central T2 hyperintensity measuring 6 mm. Consideration may be given for a cavernoma. There is similar finding identified within the right thalamus measuring 4 mm which corresponds with hyperattenuation identified on recent head CT. Primary consideration is a cavernoma. There is adjacent susceptibility artifact which does not have corresponding T2 signal abnormality within the right thalamus as well as within the right caudate head, left putamen right temporal lobe and bilateral cerebellar hemispheres suggestive of areas of microhemorrhage. There is subtle calcified extra-axial density identified along the right frontal vertex (coronal T2 image 11) which may represent an osteoma versus calcified meningioma. Diffusion weighted images reveal no hyperintensities to suggest acute cerebral infarction. Ventricles, sulci and basal cisterns are prominent compatible with moderate generalized cerebral volume loss. No hydrocephalus. The paranasal sinuses are normal. The visualized portions of the mastoids are unremarkable. The orbits appear normal. Normal flow voids are demonstrated in the carotid arteries and basilar artery. IMPRESSION: 1. No evidence for acute or subacute ischemia. 2. There are areas of signal alteration within the thalami bilaterally which have imaging characteristics most suggestive of cavernoma's. 4 mm area of signal alteration within the right thalamus corresponds with area of high attenuation on head CT. 3. Additional areas of susceptibility artifact without corresponding T2 signal alteration favor areas of microhemorrhage as detailed above. 4. There are T2/FLAIR signal hyperintense foci in the periventricular and subcortical white matter with areas of confluence most suggestive of moderate chronic small vessel ischemic changes. CT head, 09/06/21 INDICATION: Head pain status post fall TECHNIQUE: Sequential axial images through the head were obtained without the administration of IV contrast. Exposure: One or more of the following in the visualized dose reduction techniques were utilized for this examination: 1. Automated exposure control 2. Adjustment of the MA and/or KV according to patient size 3. Use of iterative of reconstructive technique Comparisons: None FINDINGS: There is a subtle 3 mm hyperdensity noted within the posterior right basal ganglia seen on series 2 image 16. There is no midline shift or sulcal effacement. Patchy evidence in the periventricular white matter. No acute vascular territory infarction is identified. Martínez-white distinction is preserved. The ventricular system is within normal limits without compression hydrocephalus. The basal cisterns are well maintained. The visualized portions of the paranasal sinuses and mastoid air cells are well- pneumatized. No acute fractures. IMPRESSION: 1. A 3 mm rounded hyperdensity at the posterior right basal ganglia. This is concerning for intraparenchymal hemorrhage. Correlate for hypertension. Recommend short-term follow-up imaging to assess stability. 2. Moderate small vessel ischemic change, technically age indeterminate without recent prior imaging. If there are concerns for acute ischemia MRI would better evaluate. Assessment/Plan Assessment/Plan Impression: Bilateral cavernomas, the 4 mm area of signal alteration within the right thalamus corresponds with area of high attenuation on head CT. Thus there is no evidence of intracranial hemorrhage. 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 No evidence of peripheral neuropathy on bedside exam except for hyporeflexia Dyspnea, chart from detention says this is old, patient says that she has never been on oxygen Recommendations: No further work-up or treatment is needed regarding the cavernomas She may need a higher level of care, not ready for discharge Thank you for letting me help with the patient's care CURTIS ANTHONY MD Sep 07, 2021 15:18
--- NOTE | 2021-09-07 16:28 | NUR ---
SS following for discharge planning. SS reviewed pt chart and discussed with pt RN. Pt is from [facility], ; fax [phone]. Pt is currently requiring oxygen at two liters nasal canula. PO diet. Neurosurgery and Neurology following. No surgical plans at this time. PT/OT ordered. SS will continue to follow for discharge planning.
[2021-09-08] VITALS: BP 156/79
[2021-09-08 04:00] VITALS: BP 167/80
[2021-09-08 08:00] VITALS: BP 141/66
--- NOTE | 2021-09-08 11:00 | SNU/HH DC ---
DISCHARGE WITH HOME HEALTH DISCHARGE INFORMATION: Final Diagnosis: Problems Medical Problems: (1) Anticoagulant long-term use Status: Acute (2) Basal ganglia hemorrhage Status: Acute (3) Fall Status: Acute (4) Pain in pelvis Status: Acute Condition on Discharge: Stable CODE STATUS: Code Status: Full HOME HEALTH: Face to Face: I certify this patient is under my care and that I, or a nurse practitioner or physician's delivery driver assistant working with me, had a face to face encounter that meets the physician face to face encounter requirements with this patient on []. 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) Long-Term For: Assess & Educate Safety RN For Eval/Treatment: Yes Physical Therapy For: Evalulation/Treatment Occupational Therapy For: Evaluation/Treatment Home Health Aide For: Self-care TERRAZZO INSTALLER For: Community Resources Pt Meets Homebound Status: Unsteady balance w/ amb, POST DISCHARGE ORDERS: DIET AFTER DISCHARGE: Cardiac CERTIFICATION STATEMENT: Certification Statement: Certification Statement: Based on the above finding, I certify that this patient is confined to the home and needs intermittent chcf care, physical therapy and/or speech therapy, or continues to need occupational therapy.~ This patient is under my care, and I have initiated the establishment of the plan of care.~ This patient will be followed by myself or a community physician who will periodically review the plan of care. Home Meds Reported Medications Sertraline Hcl (ZOLOFT) 25 Mg Tablet, 25 MG PO DAILY for ANTI-DEPRESSANT, TAB 0 Refills 09/07/21 Carvedilol (COREG ) 3.125 Mg Tablet, 3.125 MG PO BIDWMEALS for CARDIAC, TAB 09/07/21 Pravastatin Sodium (PRAVASTATIN SODIUM) 20 Mg Tablet, 20 MG PO QHS, #90 TAB 1 Refill 09/07/21 Famotidine (FAMOTIDINE) 20 Mg Tablet, 20 MG PO HS, TAB 09/07/21 Discontinued Reported Medications Rivaroxaban (XARELTO) 15 Mg Tablet, 15 MG PO DAILY, TAB 09/07/21 Discontinued Scripts Cephalexin (KEFLEX) 500 Mg Capsule, 500 MG PO QID for 7 Days, #28 CAP Prov:IVAN CONDON TOY ASSEMBLER 12/10/18 EUGENIA DOWNEY III DO Sep 08, 2021 11:00
--- NOTE | 2021-09-08 11:03 | PDOC ---
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 "Dictation Ends Here" History of Present Illness History of Present Illness 09/08/2021 Patient seems to be at her baseline We will go ahead and discharge See dictation Vitals/I&O Vitals/I&O: Vital Signs Date Time Temp Pulse Resp B/P (MAP) Pulse Ox O2 Delivery O2 Flow Rate FiO2 09/08/21 04:00 97.9 68 18 167/80 (109) 94 Nasal Cannula 2.0 97.9 I & O 09/07/21 09/07/21 09/08/21 15:00 23:00 07:00 Intake Total 0 ml 350 ml 0 ml Output Total 800 ml 600 ml Balance 0 ml -450 ml -600 ml Physical Exam General: Alert Heart: Regular rate Lungs: Clear Abdomen: Normal bowel sounds Extremities: No clubbing Skin: No rashes Assessment and Plan Assessmemt and Plan Problems Medical Problems: (1) Anticoagulant long-term use Status: Acute (2) Basal ganglia hemorrhage Status: Acute (3) Fall Status: Acute (4) Pain in pelvis Status: Acut Fall with 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 Justifications for Admission Other Justification EUGENIA DOWNEY III DO Sep 08, 2021 11:03
--- NOTE | 2021-09-08 11:30 | DS ---
DATE OF DISCHARGE: 09/08/2021 ADMISSION DIAGNOSES: Fall with central nervous system hemorrhage. DISCHARGE DIAGNOSES: Resolving falls, resolving central nervous system hemorrhage, history of anticoagulation on Xarelto (we are going to hold that as she has been falling and is at risk for central nervous system hemorrhage), history of hyperlipidemia, congestive heart failure, hypertension, depression, anxiety, gastroesophageal reflux disease. HOSPITAL COURSE: The patient is a pleasant elderly female who fell. She was transitioned from a bedside commode and stumbled and bumped her head. We did some imaging. 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 We admitted her to the ICU, consulted Dr. Neely. Today, she is back to her baseline. Dr. Neely is okay with her going home. We plan to discharge back to her facility at the [facility]. DISPOSITION: [facility] independent living. ACTIVITY: As tolerated. DIET: Low sodium. DISCHARGE MEDICATIONS: I am going to hold her home Xarelto for now as she is at high risk for falling, carvedilol 3.125 b.i.d., Pepcid 20 b.i.d., pravastatin 20 a day, sertraline 25 a day. TOTAL TIME: 38 minutes. GENA/SAUL DR: Di TID: [id number]
[2021-09-08 12:00] VITALS: BP 145/69
--- NOTE | 2021-09-08 12:51 | PDOC ---
PROGRESS NOTES Date of Service DATE: 09/08/21 TIME: 12:48 Assessment Problems Medical Problems: (1) Anticoagulant long-term use Status: Acute (2) Basal ganglia hemorrhage Status: Acute (3) Fall Status: Acute (4) Pain in pelvis Status: Acute Fall Bilateral cavernomas, the 4 mm area of signal alteration within the right thalamus corresponds with area of high attenuation on head CT. Thus there is no evidence of intracranial hemorrhage. 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 No evidence of peripheral neuropathy on bedside exam except for hyporeflexia Dyspnea, chart from half-way says this is old, patient says that she has never been on oxygen Plan No further work-up or treatment is needed regarding the cavernomas Agree with physical therapy, do not discharge back to assisted living, needs senior care unit. Subjective Denies pain, no complaint Objective Vital Signs Date Time Temp Pulse Resp B/P (MAP) Pulse Ox O2 Delivery O2 Flow Rate FiO2 09/08/21 08:00 98.1 141/66 (91) 98.1 09/08/21 08:00 Room Air 09/08/21 04:00 68 18 94 2.0 Intake and Output 09/08/21 07:00 Intake Total 350 ml Output Total 1400 ml Balance -1050 ml Intake Oral 350 ml Output Urine Total 1400 ml # Voids 1 PHYSICAL EXAM Alert. Oriented to place and person, does not know the date. PERRL. EOMI. CN: no focal findings. Muscle tone: normal. Muscle strength: 4/5 left arm, 4-/5 right arm, 2-3/5 legs DTR: 1+ Plantar reflex: Flexor Gait: not examined in bed. Sensory exam: no abnormal findings. No cerebellar signs elicited. Review of Relevant I have reviewed the following items abby (where applicable) has been applied. Labs Laboratory Tests Test 09/06/21 18:02 09/07/21 04:35 White Blood Count 7.2 x10^3/uL (4.0-11.0) 6.1 x10^3/uL (4.0-11.0) Red Blood Count 4.57 x10^6/uL (3.50-5.40) 4.12 x10^6/uL (3.50-5.40) Hemoglobin 13.1 g/dL (12.0-15.5) 11.8 g/dL (12.0-15.5) Hematocrit 40.7 % (36.0-47.0) 37.1 % (36.0-47.0) Mean Corpuscular Volume 89 fL (79-100) 90 fL (79-100) Mean Corpuscular Hemoglobin 29 pg (25-35) 29 pg (25-35) Mean Corpuscular Hemoglobin Concent 32 g/dL (31-37) 32 g/dL (31-37) Red Cell Distribution Width 14.3 % (11.5-14.5) 14.4 % (11.5-14.5) Platelet Count 209 x10^3/uL (140-400) 167 x10^3/uL (140-400) Neutrophils (%) (Auto) 73 % (31-73) 63 % (31-73) Lymphocytes (%) (Auto) 13 % (24-48) 19 % (24-48) Monocytes (%) (Auto) 9 % (0-9) 12 % (0-9) Eosinophils (%) (Auto) 4 % (0-3) 5 % (0-3) Basophils (%) (Auto) 0 % (0-3) 0 % (0-3) Neutrophils # (Auto) 5.2 x10^3/uL (1.8-7.7) 3.8 x10^3/uL (1.8-7.7) Lymphocytes # (Auto) 1.0 x10^3/uL (1.0-4.8) 1.2 x10^3/uL (1.0-4.8) Monocytes # (Auto) 0.7 x10^3/uL (0.0-1.1) 0.7 x10^3/uL (0.0-1.1) Eosinophils # (Auto) 0.3 x10^3/uL (0.0-0.7) 0.3 x10^3/uL (0.0-0.7) Basophils # (Auto) 0.0 x10^3/uL (0.0-0.2) 0.0 x10^3/uL (0.0-0.2) Prothrombin Time 14.3 SEC (11.7-14.0) Prothromb Time International Ratio 1.1 (0.8-1.1) Activated Partial Thromboplast Time 37 SEC (24-38) Sodium Level 144 mmol/L (136-145) 144 mmol/L (136-145) Potassium Level 4.1 mmol/L (3.5-5.1) 3.7 mmol/L (3.5-5.1) Chloride Level 107 mmol/L (98-107) 111 mmol/L (98-107) Carbon Dioxide Level 29 mmol/L (21-32) 30 mmol/L (21-32) Anion Gap 8 (6-14) 3 (6-14) Blood Urea Nitrogen 23 mg/dL (7-20) 20 mg/dL (7-20) Creatinine 1.3 mg/dL (0.6-1.0) 1.2 mg/dL (0.6-1.0) Estimated GFR (Cockcroft-Gault) 39.4 43.2 BUN/Creatinine Ratio 18 (6-20) Glucose Level 100 mg/dL (70-99) 85 mg/dL (70-99) Calcium Level 9.2 mg/dL (8.5-10.1) 8.5 mg/dL (8.5-10.1) Total Bilirubin 0.4 mg/dL (0.2-1.0) Aspartate Amino Transf (AST/SGOT) 18 U/L (15-37) Alanine Aminotransferase (ALT/SGPT) 17 U/L (14-59) Alkaline Phosphatase 82 U/L (46-116) Troponin I High Sensitivity 9 ng/L (4-50) OW-Uad-R-Type Natriuretic Peptide 187 pg/mL (0-449) Total Protein 7.0 g/dL (6.4-8.2) Albumin 3.5 g/dL (3.4-5.0) Albumin/Globulin Ratio 1.0 (1.0-1.7) Triglycerides Level 95 mg/dL (0-150) Cholesterol Level 131 mg/dL (0-200) LDL Cholesterol, Calculated 63 mg/dL (0-100) VLDL Cholesterol, Calculated 19 mg/dL (0-40) Non-HDL Cholesterol Calculated 82 mg/dL (0-129) HDL Cholesterol 49 mg/dL (40-60) Cholesterol/HDL Ratio 2.7 Medications Current Medications Prothrombin Complex Concent (Human) 2000 unit/ Miscellaneous 80 ml @ 8.4 mls/min 1X ONCE IV Last administered on 09/06/21at 18:27; Start 09/06/21 at 18:30; Stop 09/06/21 at 18:39; Status DC Ondansetron HCl (Zofran) 4 mg PRN Q8HRS PRN IVP NAUSEA/VOMITING; Start 09/06/21 at 18:00; Stop 09/07/21 at 17:59; Status DC Barium Sulfate (Varibar Thin Liquid Apple) 148 gm 1X ONCE PO ; Start 09/07/21 at 12:45; Stop 09/07/21 at 12:46; Status DC Active Scripts Active Reported Zoloft (Sertraline Hcl) 25 Mg Tablet 25 Mg PO DAILY Coreg (Carvedilol) 3.125 Mg Tablet 3.125 Mg PO BIDWMEALS Pravastatin Sodium 20 Mg Tablet 20 Mg PO QHS Famotidine 20 Mg Tablet 20 Mg PO HS Vitals/I & O Vital Sign - Last 24 Hours 09/07/21 09/07/21 09/07/21 09/07/21 13:00 15:00 20:00 20:10 Temp 98.9 98.9 Pulse 72 72 64 Resp 18 18 20 B/P (MAP) 153/88 (109) 147/75 (99) 122/68 (86) Pulse Ox 96 96 96 O2 Delivery Nasal Cannula Nasal Cannula Nasal Cannula Nasal Cannula O2 Flow Rate 2.0 2.0 2.0 2.0 09/08/21 09/08/21 09/08/21 09/08/21 00:00 04:00 08:00 08:00 Temp 98.1 97.9 98.1 98.1 97.9 98.1 Pulse 73 68 Resp 22 18 B/P (MAP) 156/79 (104) 167/80 (109) 141/66 (91) Pulse Ox 95 94 O2 Delivery Nasal Cannula Nasal Cannula Room Air O2 Flow Rate 2.0 2.0 Intake and Output 09/07/21 09/07/21 09/08/21 15:00 23:00 07:00 Intake Total 0 ml 350 ml 0 ml Output Total 800 ml 600 ml Balance 0 ml -450 ml -600 ml Justicifation of Admission Dx: Justifications for Admission: Justification of Admission Dx: N/A CURTIS ANTHONY MD Sep 08, 2021 12:51
[2021-09-08 16:00] VITALS: BP 153/70
--- NOTE | 2021-09-08 16:59 | NUR ---
SS following up with discharge planning. SS reviewed pt chart and discussed with pt RN. Pt is from the [facility]. Pt is currently on room air. PT/OT recommended assisted unit. Pt's family agreeable to assisted unit and requested referral to [facility], ; fax [phone]. COVID19 PCR test pending for placement. Referral sent to [facility]. SS will continue to follow for discharge planning.
[2021-09-08 20:00] VITALS: BP 135/73
--- NOTE | 2021-09-08 22:55 | NUR ---
Patient heart rate increasing from 60s/70s to 130's for a few minutes, and then returning to baseline of 60s/70s. Patient o2 saturations 88% at that time, so oxygen applied and o2 sats increased back to 94%. BP stable. Oxygen application did not change patient heart rate. At the time of this note, patient HR completed this cycle three times. Dr. Hadley paged at 2250 and orders given for CMP and EKG. Orders placed. Awaiting results.
[2021-09-08 23:19] LABS: CALCIUM 8.8 mg/dL (8.5-10.1); CREATININE 1.2 mg/dL (0.6-1.0); GFR 43.2; POTASSIUM 3.9 mmol/L (3.5-5.1)
[2021-09-08 23:25] LABS: ALBUMIN 2.9 g/dL (3.4-5.0); ALBUMIN/GLOBULIN RATIO 0.9 (1.0-1.7); TOTAL BILIRUBIN 0.7 mg/dL (0.2-1.0); TOTAL PROTEIN 6.3 g/dL (6.4-8.2)
--- NOTE | 2021-09-08 23:27 | EKG ---
[facility] [address] [place] [address] Test Date: 2021-09-08 Test Time: 23:28:18 Pat Name: RICHIE CLAROS Department: Room: 104 1 Gender: F Fructose Loader: LOPEZ : 1940 Requested By: AZAR TONG Order Number: [id number] Reading MD: Bladimir Walker Measurements Intervals [place] Rate: 130 P: 180 OK: 94 QRS: -12 QRSD: 74 T: 28 QT: 342 QTc: 510 Interpretive Statements SINUS TACHYCARDIA LEFTWARD AXIS LOW LIMB LEAD VOLTAGE QRS(T) CONTOUR ABNORMALITY CONSIDER INFERIOR INFARCT POSSIBLY ABNORMAL ECG RI6.01 No previous ECG available for comparison Electronically Signed On 09-16-2021 14:19:16 CDT by Bladimir Walker
[2021-09-09] VITALS: BP 144/75
--- NOTE | 2021-09-09 00:22 | NUR ---
Dr. Hadley repaged and updated on EKG findings and lab results. Orders to restart patient home dose of coreg, and give first dose now.
[2021-09-09] MEDS ORDERED: CARVEDILOL 3.125 MG TABLET. PO ONE (01:00)
[2021-09-09 04:13] VITALS: BP 119/54
[2021-09-09 08:00] VITALS: BP 140/73
--- NOTE | 2021-09-09 09:09 | PDOC ---
PROGRESS NOTES Date of Service DATE: 09/09/21 TIME: 09:08 Assessment Problems Medical Problems: (1) Anticoagulant long-term use Status: Acute (2) Basal ganglia hemorrhage Status: Acute (3) Fall Status: Acute (4) Pain in pelvis Status: Acute Fall Bilateral cavernomas, the 4 mm area of signal alteration within the right thalamus corresponds with area of high attenuation on head CT. Thus there is no evidence of intracranial hemorrhage. 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 No evidence of peripheral neuropathy on bedside exam except for hyporeflexia Dyspnea, chart from [facility] says this is old, patient says that she has never been on oxygen Plan No further work-up or treatment is needed regarding the cavernomas Transfer to nursing home unit. Subjective Denies pain Objective Vital Signs Date Time Temp Pulse Resp B/P (MAP) Pulse Ox O2 Delivery O2 Flow Rate FiO2 09/09/21 04:13 98.3 64 22 119/54 (75) 91 Room Air 98.3 09/09/21 00:00 1.0 Intake and Output 09/09/21 07:00 Intake Total 1020 ml Output Total 1600 ml Balance -580 ml Intake Oral 1020 ml Output Urine Total 1600 ml PHYSICAL EXAM Alert. Oriented to place and person, does not know the date. PERRL. EOMI. CN: no focal findings. Muscle tone: normal. Muscle strength: 4/5 left arm, 4-/5 right arm, 2-3/5 legs DTR: 1+ Plantar reflex: Flexor Gait: not examined in bed. Sensory exam: no abnormal findings. No cerebellar signs elicited. Review of Relevant I have reviewed the following items abby (where applicable) has been applied. Labs Laboratory Tests Test 09/08/21 23:05 Sodium Level 141 mmol/L (136-145) Potassium Level 3.9 mmol/L (3.5-5.1) Chloride Level 108 mmol/L (98-107) Carbon Dioxide Level 29 mmol/L (21-32) Anion Gap 4 (6-14) Blood Urea Nitrogen 20 mg/dL (7-20) Creatinine 1.2 mg/dL (0.6-1.0) Estimated GFR (Cockcroft-Gault) 43.2 BUN/Creatinine Ratio 17 (6-20) Glucose Level 97 mg/dL (70-99) Calcium Level 8.8 mg/dL (8.5-10.1) Total Bilirubin 0.7 mg/dL (0.2-1.0) Aspartate Amino Transf (AST/SGOT) 15 U/L (15-37) Alanine Aminotransferase (ALT/SGPT) 10 U/L (14-59) Alkaline Phosphatase 70 U/L (46-116) Troponin I High Sensitivity 9 ng/L (4-50) Total Protein 6.3 g/dL (6.4-8.2) Albumin 2.9 g/dL (3.4-5.0) Albumin/Globulin Ratio 0.9 (1.0-1.7) Laboratory Tests Test 09/08/21 23:05 Sodium Level 141 mmol/L (136-145) Potassium Level 3.9 mmol/L (3.5-5.1) Chloride Level 108 mmol/L (98-107) Carbon Dioxide Level 29 mmol/L (21-32) Anion Gap 4 (6-14) Blood Urea Nitrogen 20 mg/dL (7-20) Creatinine 1.2 mg/dL (0.6-1.0) Estimated GFR (Cockcroft-Gault) 43.2 BUN/Creatinine Ratio 17 (6-20) Glucose Level 97 mg/dL (70-99) Calcium Level 8.8 mg/dL (8.5-10.1) Total Bilirubin 0.7 mg/dL (0.2-1.0) Aspartate Amino Transf (AST/SGOT) 15 U/L (15-37) Alanine Aminotransferase (ALT/SGPT) 10 U/L (14-59) Alkaline Phosphatase 70 U/L (46-116) Troponin I High Sensitivity 9 ng/L (4-50) Total Protein 6.3 g/dL (6.4-8.2) Albumin 2.9 g/dL (3.4-5.0) Albumin/Globulin Ratio 0.9 (1.0-1.7) Medications Current Medications Prothrombin Complex Concent (Human) 2000 unit/ Miscellaneous 80 ml @ 8.4 mls/min 1X ONCE IV Last administered on 09/06/21at 18:27; Start 09/06/21 at 18:30; Stop 09/06/21 at 18:39; Status DC Ondansetron HCl (Zofran) 4 mg PRN Q8HRS PRN IVP NAUSEA/VOMITING; Start 09/06/21 at 18:00; Stop 09/07/21 at 17:59; Status DC Barium Sulfate (Varibar Thin Liquid Apple) 148 gm 1X ONCE PO ; Start 09/07/21 at 12:45; Stop 09/07/21 at 12:46; Status DC Carvedilol (Coreg) 3.125 mg 1X ONCE PO Last administered on 09/09/21at 00:40; Start 09/09/21 at 01:00; Stop 09/09/21 at 01:01; Status DC Carvedilol (Coreg) 3.125 mg BIDWMEALS PO ; Start 09/09/21 at 08:00 Active Scripts Active Reported Zoloft (Sertraline Hcl) 25 Mg Tablet 25 Mg PO DAILY Coreg (Carvedilol) 3.125 Mg Tablet 3.125 Mg PO BIDWMEALS Pravastatin Sodium 20 Mg Tablet 20 Mg PO QHS Famotidine 20 Mg Tablet 20 Mg PO HS Vitals/I & O Vital Sign - Last 24 Hours 09/08/21 09/08/21 09/08/21 09/08/21 12:00 16:00 19:50 20:00 Temp 98.6 98.5 98.9 98.6 98.5 98.9 Pulse 75 76 72 Resp 20 20 24 B/P (MAP) 145/69 (94) 153/70 (97) 135/73 (93) Pulse Ox 92 O2 Delivery Room Air Room Air Room Air Room Air 09/08/21 09/08/21 09/09/21 09/09/21 22:44 22:45 00:00 00:40 Temp 98.4 98.4 Pulse 128 77 Resp 20 B/P (MAP) 144/75 (98) 144/75 Pulse Ox 88 94 94 O2 Delivery Room Air Nasal Cannula Nasal Cannula O2 Flow Rate 2.0 1.0 09/09/21 04:13 Temp 98.3 98.3 Pulse 64 Resp 22 B/P (MAP) 119/54 (75) Pulse Ox 91 O2 Delivery Room Air Intake and Output 09/08/21 09/08/21 09/09/21 15:00 23:00 07:00 Intake Total 700 ml 200 ml 120 ml Output Total 700 ml 300 ml 600 ml Balance 0 ml -100 ml -480 ml Justicifation of Admission Dx: Justifications for Admission: Justification of Admission Dx: N/A CURTIS ANTHONY MD Sep 09, 2021 09:09
[2021-09-09] MEDS: CARVEDILOL 3.125 MG TABLET. PO SCH ×2 (09:23→16:57)
--- NOTE | 2021-09-09 11:01 | NUR ---
SS following up with discharge planning. SS reviewed pt chart and discussed with pt RN. Pt is currently requiring oxygen at two liters nasal canula. PO diet. PT/OT recommended halfway unit. Pt accepted at [facility], ; fax [phone]. COVID19 test pending for placement. SS will continue to follow for discharge planning. Addendum: 09/09/21 at 1522 by LESVIA VENEGAS SS COVID19 negative. Discharge orders received and sent to [facility], ; fax [phone]. Pt will discharge tomorrow morning and go to [facility] at 0900 via [employer], . Pt's RN notified.
--- NOTE | 2021-09-09 11:43 | SNU/HH DC ---
DISCHARGE ORDERS DISCHARGE INFORMATION: FINAL DIAGNOSIS Problems Medical Problems: (1) Anticoagulant long-term use Status: Acute (2) Basal ganglia hemorrhage Status: Acute (3) Fall Status: Acute (4) Pain in pelvis Status: Acute CONDITION ON DISCHARGE: Stable CODE STATUS: Code Status: Full [facility]: SNF STAY <30 DAYS: Yes HOSPICE: HOSPICE: No HOSPICE EVAL & TREAT: No LTAC: ADMIT TO LTAC: No POST DISCHARGE ORDERS: ACTIVITY ORDERS: Avoid exertion DIET AFTER DISCHARGE: Cardiac TREATMENT/EQUIPMENT ORDERS: Physical Therapy For: Evalulation/Treatment Occupational Therapy For: Evaluation/Treatment DISCHARGE MEDICATIONS: Home Meds Reported Medications Sertraline Hcl (ZOLOFT) 25 Mg Tablet, 25 MG PO DAILY for ANTI-DEPRESSANT, TAB 0 Refills 09/07/21 Carvedilol (COREG ) 3.125 Mg Tablet, 3.125 MG PO BIDWMEALS for CARDIAC, TAB 09/07/21 Pravastatin Sodium (PRAVASTATIN SODIUM) 20 Mg Tablet, 20 MG PO QHS, #90 TAB 1 Re fill 09/07/21 Famotidine (FAMOTIDINE) 20 Mg Tablet, 20 MG PO HS, TAB 09/07/21 Discontinued Reported Medications Rivaroxaban (XARELTO) 15 Mg Tablet, 15 MG PO DAILY, TAB 09/07/21 Discontinued Scripts Cephalexin (KEFLEX) 500 Mg Capsule, 500 MG PO QID for 7 Days, #28 CAP Prov:IVAN CONDON NOC ANALYST 12/10/18 EUGENIA DOWNEY III DO Sep 09, 2021 11:43
--- NOTE | 2021-09-09 11:46 | PDOC ---
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 "Dictation Ends Here History of Present Illness History of Present Illness 09/09/2021 Patient seen and examined Discussed with RN Chart reviewed Discussed with case management We are hoping to get her to [facility] nursing unit later today 09/08/2021 Patient seems to be at her baseline We will go ahead and discharge See dictation Vitals/I&O Vitals/I&O: Vital Signs Date Time Temp Pulse Resp B/P (MAP) Pulse Ox O2 Delivery O2 Flow Rate FiO2 09/09/21 09:23 63 140/72 09/09/21 08:00 98.0 20 94 Room Air 98.0 09/09/21 00:00 1.0 I & O 09/08/21 09/08/21 09/09/21 15:00 23:00 07:00 Intake Total 700 ml 200 ml 120 ml Output Total 700 ml 300 ml 600 ml Balance 0 ml -100 ml -480 ml Physical Exam General: Alert Heart: Regular rate Lungs: Clear Abdomen: Normal bowel sounds Extremities: No clubbing Skin: No rashes Labs Labs: Laboratory Tests Test 09/08/21 23:05 Sodium Level 141 mmol/L (136-145) Potassium Level 3.9 mmol/L (3.5-5.1) Chloride Level 108 mmol/L (98-107) Carbon Dioxide Level 29 mmol/L (21-32) Anion Gap 4 (6-14) Blood Urea Nitrogen 20 mg/dL (7-20) Creatinine 1.2 mg/dL (0.6-1.0) Estimated GFR (Cockcroft-Gault) 43.2 BUN/Creatinine Ratio 17 (6-20) Glucose Level 97 mg/dL (70-99) Calcium Level 8.8 mg/dL (8.5-10.1) Total Bilirubin 0.7 mg/dL (0.2-1.0) Aspartate Amino Transf (AST/SGOT) 15 U/L (15-37) Alanine Aminotransferase (ALT/SGPT) 10 U/L (14-59) Alkaline Phosphatase 70 U/L (46-116) Troponin I High Sensitivity 9 ng/L (4-50) Total Protein 6.3 g/dL (6.4-8.2) Albumin 2.9 g/dL (3.4-5.0) Albumin/Globulin Ratio 0.9 (1.0-1.7) Assessment and Plan Assessmemt and Plan Problems Medical Problems: (1) Anticoagulant long-term use Status: Acute (2) Basal ganglia hemorrhage Status: Acute (3) Fall Status: Acute (4) Pain in pelvis Status: Acute 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 Medications: Current Medications Medications (Trade) Dose Ordered Sig/Marianna Route PRN Reason Start Time Stop Time Status Last Admin Dose Admin Carvedilol (Coreg) 3.125 mg 1X ONCE PO 09/09/21 01:00 09/09/21 01:01 DC 09/09/21 00:40 Carvedilol (Coreg) 3.125 mg BIDWMEALS PO 09/09/21 08:00 09/09/21 09:23 Justifications for Admission Other Justification EUGENIA DOWNEY III DO Sep 09, 2021 11:46
[2021-09-09 12:00] VITALS: BP 136/65
[2021-09-09 16:00] VITALS: BP 147/72
[2021-09-09 20:23] VITALS: BP 121/68
[2021-09-10 00:50] VITALS: BP 134/65
[2021-09-10 04:29] VITALS: BP 163/71
[2021-09-10 08:00] VITALS: BP 148/81
[2021-09-10 09:15] VITALS: BP 148/81
[2021-09-10] MEDS: CARVEDILOL 3.125 MG TABLET. PO SCH (09:15)
--- NOTE | 2021-09-10 09:15 | NUR ---
0900h- Called [facility] for hand over, received by RN on duty. Removed IV cannula. and purewick. Ambulance Staff came.Assisted patient in transferring to wheelchair with charge nurse Judit. 0915h-Discharged patient by wheelchair safely, personal belongings and patient's given to ambulance staff for handing over to [facility] staff.
== END 2021-09-10 09:15 | DRG 85 ==
LOC: ER 16:20 → ED HOLD 17:34 → 1 WEST ICU 20:00
PROVIDERS: ADMIT Student in an Organized Health Care Education/Training Program; ATTEND Student in an Organized Health Care Education/Training Program
DX: S06.360A Traumatic hemorrhage of cerebrum, unspecified, without loss of consciousness, initial encounter (principal); I50.43 Acute on chronic combined systolic (congestive) and diastolic (congestive) heart failure; I69.351 Hemiplegia and hemiparesis following cerebral infarction affecting right dominant side; E78.5 Hyperlipidemia, unspecified; F03.90 Unspecified dementia, unspecified severity, without behavioral disturbance, psychotic disturbance, mood disturbance, and anxiety; F32.A Depression, unspecified; F41.9 Anxiety disorder, unspecified; I11.0 Hypertensive heart disease with heart failure; K21.9 Gastro-esophageal reflux disease without esophagitis; Z20.822 Contact with and (suspected) exposure to COVID-19; Z96.659 Presence of unspecified artificial knee joint; R53.81 Other malaise; S09.90XA Unspecified injury of head, initial encounter; W01.0XXA Fall on same level from slipping, tripping and stumbling without subsequent striking against object, initial encounter; Y93.89 Activity, other specified; Y92.89 Other specified places as the place of occurrence of the external cause; Y99.8 Other external cause status; Z88.0 Allergy status to penicillin; Z79.01 Long term (current) use of anticoagulants
CPT/HCPCS: 36415; 70450; 70551; 72192; 74230; 80048; 80053; 80061; 83880; 84484; 85025; 85610; 85730; 93005; 96365; J7194; U0003; 92526-GN; 92610-GN; 92611-GN; 97530-GO; 97530-GP; 97535-GO; 99291-25; G0378